=== PATIENT | male | born 1975 | race American Indian/Alaskan Native ===

== ENCOUNTER 2018-04-05 06:57 | Emergency (ER) | payer SELFPAY ==
[2018-04-05 07:06] VITALS: BP 151/103
[2018-04-05] MEDS ORDERED: DECADRON IM ONE (07:48)
[2018-04-05] MEDS ORDERED: TYLENOL PO ONE (07:48)
[2018-04-05] MEDS ORDERED: BICILLIN L-A IM ONE (07:48)
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
== END 2018-04-05 08:09 | disposition home or self-care (01) ==
LOC: ED 06:57
DX: J02.9 Acute pharyngitis, unspecified (principal); R03.0 Elevated blood-pressure reading, without diagnosis of hypertension; I10 Essential (primary) hypertension
CPT/HCPCS: 96372; 99282; J0561; J1100